=== PATIENT | female | born 1955 | race Caucasian/White ===

== ENCOUNTER → 2016-05-16 | Outpatient (CLI) | payer BC, OTHER ==
[~2016-05-16] MED LIST: AMBIEN 5 MG TABL5 M1; BENTYL10 MG PO; CARISOPRODOL 3350 MG PO; CELEXA40 MG; CIPROFLOXACIN500 M1 PO; CYCLOBENZAPRINE10 MG; CYCLOBENZAPRINE10 MG PO; ESTRACE0.5 MG; IMITREX 50 MG T50 M1; LIPITOR10 MG PO; NORCO 5-325 TA1 EACH PO; PRADAXA150 MG PO; PREDNISONE 20 M20 MG PO; PROTONIX40 M1 PO; VENTOLIN HFA 1818 GM INH; VERAPAMIL ER100 MG; XOPENEX 0.63 MG/3 M1 INH; ZOFRAN 4 MG ORAL4 M1 DIS; ZOFRAN 4 MG ORAL4 MG DISSOLVE
[2016-05-16 10:58] LABS: HEMATOCRIT 32.2 % (37.0-47.0); HEMOGLOBIN 10.9 gm/dL (12.0-15.0); MCH 32.6 pg (26.0-34.0); MCHC 33.8 % (28.0-37.0); MCV 96.6 fL (80.0-100.0); PLATELET COUNT 429 thou/uL (150-400); RBC 3.34 mil/uL (4.20-5.00); RDW 12.8 % (10.5-14.5)
[2016-05-16 10:59] LABS: MANUAL DIFF YES
[2016-05-16 11:06] LABS: CALCIUM 8.3 mg/dL (8.5-10.1); CREATININE 0.6 mg/dL (0.6-1.3); POTASSIUM 3.2 mmol/L (3.5-5.1)
[2016-05-16 11:12] LABS: ALBUMIN 2.8 g/dL (3.4-5.0); TOTAL BILIRUBIN 0.3 mg/dL (<0.1-1.0); TOTAL PROTEIN 5.9 g/dL (6.4-8.2)
[2016-05-16 11:49] LABS: ABSOLUTE NEUTROPHILS 3.1 thou/uL (1.4-8.2); TOTAL CELL COUNT 100
[2016-05-16 14:08] LABS: MAGNESIUM 1.7 mg/dL (1.8-2.4)
== END ==
LOC: RAD 10:23
PROVIDERS: Internal Medicine Pulmonary Disease
DX: R05 Cough (principal)

== ENCOUNTER → 2016-09-26 | Outpatient (CLI) | payer BC, OTHER | LOC: RAD 13:23 | DX: J98.11 Atelectasis (principal); I27.2 Other secondary pulmonary hypertension ==

== ENCOUNTER → 2016-10-01 | Outpatient (CLI) | payer BC, OTHER ==
--- NOTE | ~2016-10-01 | 2DMMODE ---
[facility] [address] [email or web address] [address] 2 D/M-MODE ECHOCARDIOGRAM Name: LOREE OLIVEIRA Room #: REG [facility]#: [id number] Admission: 10/01/16 Attend Phys: Any Moore Discharge: Date of : 57 Date of Service: 10/01/16 1545 Report #: [id number] THIS REPORT FOR: //name// APPROVED REPORT Study performed: 10/01/2016 12:47:09 EXAM: Comprehensive 2D, Doppler, and color-flow Echocardiogram Patient Location: Out-Patient Room #: Echo lab Status: routine Other Information Study Quality: Good Indications Pulmonary Hypertension Dyspnea 2D Dimensions RVDd: 31.90 mm LVEF(%): 67.37 (>50%) IVSd: 9.76 (7-11mm) LVOT Diam: 21.57 (18-24mm) LVDd: 45.48 mm PWd: 8.90 (7-11mm) Ascending Ao: 28.35 (22-36mm) LVDs: 28.52 (25-40mm) Aortic Root: 24.73 mm IVC: 12.00 mm Mcknight's LVEF: 67.37 % Volumes Left Atrial Volume (Systole) Single Plane 4CH: 27.61 mL Single Plane 2CH: 22.45 mL LA ESV Index: 15.00 mL/m2 Aortic Valve AoV Peak Manuel.: 1.13 m/s AO Peak Gr.: 5.14 mmHg LVOT Max P.72 mmHg LVOT Max V: 1.09 m/s PAYTON Vmax: 3.50 cm2 Mitral Valve E/A Ratio: 1.2 MV Decel. Time: 192.32 ms MV E Max Manuel.: 0.79 m/s MV A Manuel.: 0.68 m/s MV PHT: 55.77 ms [facility] [place] [address] 2 D/M-MODE ECHOCARDIOGRAM Name: TEELOREE HUSSEIN Room #: REG [facility]#: [id number] Admission: 10/01/16 Attend Phys: Any Moore Discharge: Date of : 57 Date of Service: 10/01/16 1545 Report #: [id number] IVRT: 92.27 ms Pulmonary Valve PV Peak Manuel.: 0.80 m/s PV Peak Gr.: 2.55 mmHg Pulmonary Vein P Vein S: 0.58 m/s P Vein A: 0.43 m/s P Vein D: 0.41 m/s P Vein A Dur.: 106.1 msec P Vein S/D Ratio: 1.41 Tricuspid Valve TR Peak Manuel.: 2.51 m/s RAP Estimate: 5.00 mmHg TR Peak Gr.: 25.22 mmHg PA Pressure: 31.00 mmHg Left Ventricle The left ventricle is normal size. There is normal LV segmental wall motion. There is normal left ventricular wall thickness. The left ventricular systolic function is normal. The left ventricular ejection fraction is within the normal range. LVEF is 55-60%. The left ventricular diastolic function is normal. Right Ventricle The right ventricle is normal size. The right ventricular systolic function is normal. Atria The left atrium size is normal. The right atrium size is normal. Aortic Valve The aortic valve is normal in structure. No aortic regurgitation is present. There is no aortic valvular stenosis. Mitral Valve The mitral valve is normal in structure. Mild mitral regurgitation. No evidence of mitral valve stenosis. Tricuspid Valve The tricuspid valve is normal in structure. There is no tricuspid valve stenosis. There is mild tricuspid regurgitation. The right atrial pressure is estimated at 5 mmHg. There is mild pulmonary hypertension. Pulmonic Valve The pulmonary valve is normal in structure. [place] [address] 2 D/M-MODE ECHOCARDIOGRAM Name: LOREE OLIVEIRA Room #: REG [facility]#: [id number] Admission: 10/01/16 Attend Phys: Any Moore Discharge: Date of : 57 Date of Service: 10/01/16 1545 Report #: [id number] valvular regurgitation. Great Vessels The aortic root is normal in size. IVC is normal in size and collapses >50% with inspiration. Pericardium There is no pericardial effusion. <Conclusion> The left ventricular systolic function is normal. There is normal LV segmental wall motion. LVEF is 55-60%. The left ventricular diastolic function is normal. The aortic valve is normal in structure. No aortic regurgitation or stenosis The mitral valve is normal in structure. Mild mitral regurgitation. Pulmonary artery pressure of 30mmHg There is no pericardial effusion. <ELECTRONICALLY SIGNED> By: Puneet Smith MD, [facility] 10/01/16 1545 1545 1545 Puneet Smith MD, [facility] /INF
== END ==
LOC: CV 08:37
DX: I27.2 Other secondary pulmonary hypertension (principal); R06.00 Dyspnea, unspecified; R05 Cough

== ENCOUNTER → 2019-09-21 | Outpatient (CLI) | payer BC, OTHER | LOC: RAD 10:11 | DX: J20.9 Acute bronchitis, unspecified (principal); J21.9 Acute bronchiolitis, unspecified ==